=== PATIENT | male | born 1985 | race Caucasian/White ===

== ENCOUNTER 2016-09-07 13:10 | Emergency (ER) ==
--- NOTE | 2016-09-07 14:44 | PROVIDER DOCUMENTATION ---
HPI-Musculoskeletal Pain/Inj - GENERAL Chief Complaint: Return/Recheck Stated Complaint: recheck/broken arm Time Seen by Provider: 09/07/16 14:32 Source: patient - HX OF PRESENT ILLNESS-MUSKULOSKELTAL Nature of Presenting Problem: 31 y/o WM s/p fall 3 days ago, seen at [facility] [place] [facility], dx with radial and ulnar fracture, and put into a splint. They referred him to [facility]. States he lives here in [place], and he wants a referral to a [place] [facility]. Denies new injuries. States his hand has some swelling, but otherwise no complications. Original fall was 4 ft off the ground onto the arm, denies hitting head or loc. They rx his pain medication at [facility] Quality of Pain: reports: aching, throbbing Severity in ED: moderate Onset/Duration: 4 days ago Timing: still present, constant Any recent injury?: Yes Locality of Occurance: Home Similar Symptoms Previously?: Yes Recently seen or treated by another doctor?: Yes Review of Systems - Adult - REVIEW OF SYSTEMS - ADULT Constitutional: reports: no symptoms reported. denies: chills, fever, fatique Eyes: reports: no symptoms reported. denies: blurred vision, double vision, eye pain Ears, Nose, Mouth & Throat: reports: no symptoms reported. denies: ear pain, nose pain, throat pain Cardiovascular: reports: no symptoms reported. denies: chest pain, palpitations Respiratory: reports: no symptoms reported. denies: cough, shortness of breath , wheezing Gastrointestinal: reports: no symptoms reported. denies: abdominal pain, diarrhea, nausea, vomiting Genitourinary: reports: no symptoms reported. denies: dysuria, discharge, frequency, incontinence Musculoskeletal: reports: see HPI, bone pain, muscle aches. denies: back pain Integumentary: reports: no symptoms reported Neurological: reports: no symptoms reported. denies: headache/migraines Psychiatric: reports: no symptoms reported Endocrine: reports: no symptoms reported Hematologic/Lymphatic: reports: no symptoms reported Allergic/Immunologic: reports: no symptoms reported All Other Systems: Reviewed and Negative Past History - Adult - PAST MEDICAL HISTORY-ADULT Review of Records: reports: Old Records Reviewed, Nursing Assessment Review, Medications Reviewed, Social history reviewed & non-contributory. Major Childhood Illnesses: reports: denies history Cardiovascular: reports: denies history Respiratory: reports: denies history Gastrointestinal: reports: denies history Genitourinary: reports: denies history Musculoskeletal: reports: denies history Neurological: reports: denies history Endocrine/Immune: reports: denies history Other Conditions: reports: denies history - FAMILY HISTORY Family History: reviewed, not pertinent - SOCIAL HISTORY Smoking: denies Substance Use: none/never Alcohol Use Frequency: never Physical Exam-Injury Related - Physical Exam-Injury Related Initial Vital Signs Reviewed: Yes General Appearance: appears well, alert, no apparent distress Eyes: PERRL/EOMI, pink conjunctivae Head, Ears, Nose, Mouth & Throat: normocephalic/atraumatic, moist mucous membranes Neck: non-tender, full range of motion, supple, normal inspection Respiratory: chest non-tender, lungs clear, normal breath sounds, no pleuratic chest pain, no respiratory distress, no accessory muscle use. negative: respiratory distress, decreased breath sounds, accessory muscle use, crackles, rales, rhonchi, stridor, wheezing Cardiovascular: normal peripheral pulses, regular rate, rhythm Peripheral Pulses: radial (R): 2+, radial (L): 2+ Extremity: other (left arm: there is sweling to the distal hand. Cap refill < 3 , able to move all fingers. has a splint on the right upper extremity) Integumentary: normal color, warm/dry, blanching Neurologic: grossly normal, no motor/sensory deficits Psych/Mental Status: normal mood/affect, normal thought content, normal thought process, oriented x 3 - Glascow Coma Score Best Eye Response ([place]): (4) open spontaneously Best Verbal Response ([place]): (5) oriented Best Motor Response ([place]): (6) obeys commands Progress - PLAN OF CARE/RESULTS Progress/Plan/Lab Results: Vital Signs Temp Pulse Resp BP Pulse Ox 09/07/16 13:15 98.1 F 73 18 140/81 100 Penicillins Allergy (Severe, Verified 02/19/13 14:47) ANAPHYLAXIS Sulfa (Sulfonamide Antibiotics) Allergy (Severe, Verified 02/19/13 14:47) Unknown blisters Tramadol [Ultram] 50 mg PO Q6H PRN PRN #15 tablet 02/19/13 Fluoxetine [Prozac] 40 mg PO QAM #0 capsule 03/02/13 Gabapentin [Neurontin] 800 mg PO 4XDAY #0 capsule 03/02/13 Trazodone [Desyrel] 100 mg PO QHS #0 tablet 03/02/13 Butalbital/APAP/Caffeine [Esgic Plus] 1 each PO Q4H PRN PRN 04/14/13 Clonazepam [Klonopin] 1 mg PO TID 04/14/13 Departure - Departure Time of Disposition Order: 14:39 DIAGNOSIS: Arm fracture, left Qualifiers: Encounter type: subsequent encounter Fracture healing: with routine healing Qualified Code(s): S42.302D - Unspecified fracture of shaft of humerus, left arm , subsequent encounter for fracture with routine healing Disposition: HOME 01 Certified Medical Emergency: Emergent Condition: Stable Additional Instructions: Follow up with Dr. Eugene, orthopedic ED Follow Up Instructions: You have been treated by a care provider in the Emergency Department. These instructions are being provided to you so you can have an understanding of how to care for yourself upon discharge. Upon discharge from the Emergency Department, you are responsible for making arrangements for follow-up care by a physician of your choice. Take all prescribed medications as directed. Return to the Emergency Department immediately for any new or worsening symptoms. You may call the Physician Referral phone number at [phone] to obtain a list of Physicians who are taking new patients. Referrals: None,PCP [Primary Care Provider] - Josias Eugene MD [STAFF PHYSICIAN] - Attestation - Physician/ URI Attestation Patient care was provided by Advanced Practice Provider:: Yes Advanced Practice Provider:: Doretha Blackburn Advanced Practice Provider documentation review:: The Mid-level provider documentation, treatment plan and medical decision making was reviewed by the physician who agrees with all treatment and medical decision making by the P.
[2016-09-07 15:09] VITALS: BP 113/94
== END 2016-09-07 15:10 | disposition home or self-care (01) ==
LOC: ED 13:10
DX: Z76.0 Encounter for issue of repeat prescription (principal); S42.302D Unspecified fracture of shaft of humerus, left arm, subsequent encounter for fracture with routine healing; R22.32 Localized swelling, mass and lump, left upper limb; M79.1 Myalgia; W17.89XD Other fall from one level to another, subsequent encounter; Z79.899 Other long term (current) drug therapy